=== PATIENT | male | born 1990 | race Caucasian/White ===

== ENCOUNTER 2019-10-25 09:18 | Emergency (ER) | payer OTHER ==
[~2019-10-25] VITALS: Ht 188 cm; Wt 85.7 kg
[~2019-10-25 09:18] MED LIST: Acetaminophen-1 EAC1 PO; Cleocin HCl300 MG PO; Vibramycin100 MG PO
[2019-10-25] MEDS ORDERED: CEPH500 PO (10:06)
[2019-10-25] MEDS ORDERED: MONDOXYNE NL100 MG PO (10:06)
== END 2019-10-25 10:11 | disposition home or self-care (01) ==
LOC: ER 09:18
DX: L02.415 Cutaneous abscess of right lower limb (principal); F17.210 Nicotine dependence, cigarettes, uncomplicated; Z88.1 Allergy status to other antibiotic agents; Z88.2 Allergy status to sulfonamides
CPT/HCPCS: 87070; 87075; 87077; 87147; 87186; 87205; 99283

== ENCOUNTER 2019-10-27 22:14 | Emergency (ER) | payer OTHER ==
[~2019-10-27] VITALS: Ht 188 cm; Wt 81.7 kg
[~2019-10-27 22:14] MED LIST changes: +CEPH500 PO; +MONDOXYNE NL100 MG PO
[2019-10-27 22:48] LABS: BASOPHILS ABSOLUTE AUTO 0.06 K/mm3 (0.00-0.23); BASOPHILS PERCENT AUTO 0 % (0-2); EOSINOPHILS ABSOLUTE AUTO 0.08 K/mm3 (0.00-0.68); EOSINOPHILS PERCENT AUTO 1 % (0-6); Hemoglobin 14.7 g/dL (13.5-17.5); IMMATURE GRAN ABSOLUTE AUTO 0.04 K/mm3 (0.00-0.10); IMMATURE GRAN PERCENT AUTO 0 % (0-1); LYMPHOCYTES ABSOLUTE AUTO 1.42 K/mm3 (0.84-5.20); LYMPHOCYTES PERCENT AUTO 10 % (21-46); MONOCYTES ABSOLUTE AUTO 0.83 K/mm3 (0.16-1.47); MONOCYTES PERCENT AUTO 6 % (4-13); Mean Corpuscular HGB 30.8 pg (26.0-34.0); Mean Corpuscular HGB Conc 33.4 g/dL (31.5-36.5); Mean Corpuscular Volume 92 fL (80-100); Mean Platelet Volume 11.3 fL (9.1-12.4); NEUTROPHILS ABSOLUTE AUTO 11.88 K/mm3 (1.96-9.15); NEUTROPHILS PERCENT AUTO 83 % (41-73); Platelet Count 210 K/mm3 (150-400); RDW Coefficient Variation 12.4 % (11.7-14.2); RDW Standard Deviation 42.2 fL (35.1-46.3); Red Blood Cell Count 4.78 M/mm3 (4.30-5.90); White Blood Cell Count 14.31 K/mm3 (4.00-11.30)
[2019-10-27 23:06] LABS: Alanine Aminotransfer (ALT/SGP 16 U/L (12-78); Albumin, Blood 3.5 g/dL (3.4-5.0); Albumin/Globulin Ratio 0.9 (0.8-1.8); Alk Phos 76 U/L (50-136); Anion Gap 6 mmol/L (6-16); Aspartate Aminotrans (AST/SGOT 10 U/L (12-37); Bilirubin, Total 0.6 mg/dL (0.1-1.0); Blood Urea Nitrogen 16 mg/dL (8-24); CO2, Blood 28 mmol/L (21-32); Chloride, Blood 103 mmol/L (98-108); Creatinine, Blood 0.84 mg/dL (0.60-1.20); Globulin, Blood 4.1 g/dL (2.2-4.0); Glomerular Filtration Rate >60 (60-); Glucose, Blood 116 mg/dL (70-99); Sodium, Blood 137 mmol/L (136-145); Total Protein, Blood 7.6 g/dL (6.4-8.2)
[2019-10-28] MEDS ORDERED: MOTRIN IB200 MG PO (00:55)
[2019-10-28] MEDS ORDERED: Cephalexin500 MG PO (00:55)
== END 2019-10-28 01:28 | disposition home or self-care (01) ==
LOC: ER 22:14
PROVIDERS: Physician Assistant
DX: A41.9 Sepsis, unspecified organism (principal); L03.115 Cellulitis of right lower limb; M70.41 Prepatellar bursitis, right knee; F17.200 Nicotine dependence, unspecified, uncomplicated; Z88.2 Allergy status to sulfonamides; Z88.1 Allergy status to other antibiotic agents
CPT/HCPCS: 36415; 73562-RT; 76882; 80053; 83605; 85025; 87040; 87070; 87075; 87077; 87147; 87186; 87205; 96361; 96365; 96375; 99284-25; J2405; J3370; J7030

== ENCOUNTER 2019-10-28 16:35 | Inpatient (IN) | payer OTHER ==
[~2019-10-28] VITALS: Ht 188 cm; Wt 77.1 kg
[~2019-10-28 16:35] MED LIST changes: +Cephalexin500 MG PO; +MOTRIN IB200 MG PO
[2019-10-28 17:55] LABS: BASOPHILS ABSOLUTE AUTO 0.03 K/mm3 (0.00-0.23); BASOPHILS PERCENT AUTO 0 % (0-2); EOSINOPHILS ABSOLUTE AUTO 0.04 K/mm3 (0.00-0.68); EOSINOPHILS PERCENT AUTO 0 % (0-6); Hematocrit 39.4 % (37.0-53.0); IMMATURE GRAN ABSOLUTE AUTO 0.03 K/mm3 (0.00-0.10); IMMATURE GRAN PERCENT AUTO 0 % (0-1); LYMPHOCYTES ABSOLUTE AUTO 1.43 K/mm3 (0.84-5.20); LYMPHOCYTES PERCENT AUTO 12 % (21-46); MONOCYTES ABSOLUTE AUTO 0.89 K/mm3 (0.16-1.47); MONOCYTES PERCENT AUTO 7 % (4-13); Mean Corpuscular HGB 30.5 pg (26.0-34.0); Mean Corpuscular Volume 93 fL (80-100); Mean Platelet Volume 11.3 fL (9.1-12.4); NEUTROPHILS ABSOLUTE AUTO 9.66 K/mm3 (1.96-9.15); NEUTROPHILS PERCENT AUTO 80 % (41-73); Platelet Count 220 K/mm3 (150-400); RDW Coefficient Variation 12.6 % (11.7-14.2); RDW Standard Deviation 42.8 fL (35.1-46.3); Red Blood Cell Count 4.26 M/mm3 (4.30-5.90); White Blood Cell Count 12.08 K/mm3 (4.00-11.30)
[2019-10-28 18:07] LABS: Alanine Aminotransfer (ALT/SGP 16 U/L (12-78); Albumin, Blood 3.2 g/dL (3.4-5.0); Albumin/Globulin Ratio 0.8 (0.8-1.8); Alk Phos 69 U/L (50-136); Anion Gap 6 mmol/L (6-16); Aspartate Aminotrans (AST/SGOT 15 U/L (12-37); Bilirubin, Total 0.4 mg/dL (0.1-1.0); Blood Urea Nitrogen 15 mg/dL (8-24); Bun/Creatinine Ratio 17.2 (12.0-20.0); CO2, Blood 25 mmol/L (21-32); Calcium, Blood 9.1 mg/dL (8.5-10.1); Chloride, Blood 108 mmol/L (98-108); Creatinine, Blood 0.87 mg/dL (0.60-1.20); Globulin, Blood 4.1 g/dL (2.2-4.0); Glomerular Filtration Rate >60 (60-); Glucose, Blood 117 mg/dL (70-99); Potassium, Blood 4.2 mmol/L (3.5-5.5); Sodium, Blood 139 mmol/L (136-145); Total Protein, Blood 7.3 g/dL (6.4-8.2)
--- NOTE | 2019-10-28 18:37 | NUR ---
PATIENT TO FLOOR FROM ED. HE IS A&O AND IND. COOPERATIVE BUT APPREHENSIVE ABOUT BEING ADMITTED. VSS. MEDICATED FOR PAIN. IVF STARTED AND VANCO INFUSING. PHOTOS TAKEN OF R KNEE. AREA IS SWOLLEN AND DRAINING MODERATE AMOUNT OF SEROSANGUINOUS FLUID. REDNESS UP THE THIGH IS MARKED. PATIENT IS A SMOKER. STATES HIS UNDERSTANDING THAT HE MUST HAVE HIS ANTIBIOTICS COMPLETED PRIOR TO OING OUTSIDE.
[2019-10-29 05:02] LABS: Hematocrit 38.8 % (37.0-53.0); Hemoglobin 12.7 g/dL (13.5-17.5); Mean Corpuscular HGB 30.7 pg (26.0-34.0); Mean Corpuscular HGB Conc 32.7 g/dL (31.5-36.5); Mean Corpuscular Volume 94 fL (80-100); Platelet Count 210 K/mm3 (150-400); RDW Coefficient Variation 12.7 % (11.7-14.2); RDW Standard Deviation 43.6 fL (35.1-46.3); Red Blood Cell Count 4.14 M/mm3 (4.30-5.90); White Blood Cell Count 9.35 K/mm3 (4.00-11.30)
[2019-10-29 05:17] LABS: Anion Gap 4 mmol/L (6-16); Blood Urea Nitrogen 16 mg/dL (8-24); Bun/Creatinine Ratio 19.7 (12.0-20.0); CO2, Blood 29 mmol/L (21-32); Calcium, Blood 8.8 mg/dL (8.5-10.1); Chloride, Blood 106 mmol/L (98-108); Creatinine, Blood 0.81 mg/dL (0.60-1.20); Glomerular Filtration Rate >60 (60-); Glucose, Blood 100 mg/dL (70-99); Potassium, Blood 4.1 mmol/L (3.5-5.5); Sodium, Blood 139 mmol/L (136-145)
--- NOTE | 2019-10-29 06:43 | NUR ---
SHIFT SUMMARY PT IS A 29 Y/O MALE, ADMITTED WITH R KNEE SEPTIC BURSITIS. HE IS A&O X 4, AND INDEPENDENT IN THE ROOM. PT WAS UP ALL NIGHT WITH VISITORS AT BEDSIDE. HE LEFT THE ROOM SEVERAL TIMES TO GO OUTSIDE AND SMOKE. PT IS ON NS @ 100 ML/HR. VITAL SIGNS STABLE. PT WAS MEDICATED ONCE WITH PRN TORADOL. NO COMPLAINTS OF NAUSEA OR SOB. NO OTHER ACUTE CHANGES IN PT CONDITION NOTED. WILL CONTINUE TO MONITOR AND TREAT PER EMAR UNTIL HAND OFF TO DAY SHIFT RN.
--- NOTE | 2019-10-29 08:02 | NUR ---
OUT FOR SMOKE. TAMPER RESISTENT TAPE TO IV SITE.
--- NOTE | 2019-10-29 09:37 | NUR ---
JUST RETURNED FROM OUTSIDE
--- NOTE | 2019-10-29 11:01 | NUR ---
AWARE PATIENT REFUSED; TYLENOL AND TORADOL. STS "DO NOT HELP." HAD TORADOL ONCE.
--- NOTE | 2019-10-29 12:41 | NUR ---
PATIENT WITH EXCELLENT APPETITE. OK TO D'C MAINTENANCE FLUIDS PER
--- NOTE | 2019-10-29 13:56 | NUR ---
NOTIFIED POS. BLD CULTURES, GRQAM POS. COCCI IN CLUSTERS. ALREADY ON VANCO.
--- NOTE | 2019-10-29 14:17 | NUR ---
SLEEPING. NOT AWAKENED TO SEE IF BENADRYL HAS WORKED. APPEARS COMFORTABLE.
[2019-10-29 15:30] LABS: Vancomycin, Trough 17.9 ug/mL (5.0-10.0)
--- NOTE | 2019-10-29 15:51 | NUR ---
HERE TO SEE PATIENT.
--- NOTE | 2019-10-29 16:07 | NUR ---
PATIENT NOT IN ROOM. PER PATIENT NEEDS TO SHOWER AND CLEAN RT LEG. DRESSING OF 4X4 ON WOUND THEN ABD OR EXUDRY. CHANGE TOMORROW MORNING AND SHE WILL SEE HIM TOMORROW AFTERNOON.
--- NOTE | 2019-10-29 17:38 | NUR ---
RETURNED FROM OUTSIDE
--- NOTE | 2019-10-29 17:45 | NUR ---
PATIENTS MOM, SAUMYA CALLS AND WANTS US TO KNOW "HE IS RECOVERING DRUG ADDICT AND IS IN SEVERE PAIN AND NEEDS NONNARCOTIC MED." PATIENT MOM WAS IN ROOM WHEN OFFERED TORADOL AND PATIENT REFUSED. MOM ADVISED PATIENT WOULD BE CONSIDERED AMA IF GONE FROM ROOM MORE THAN 1 HOUR. PATIENT WAS GONE FROM ROOM ABOUT 1 1/2 HOURS WITH FRIEND FINDING PATIENT AND BRINGING HIM BACK TO ROOM.
--- NOTE | 2019-10-29 17:53 | NUR ---
PATIENT IN ROOM EATTING 1 QUART ON ICE CREAM AND WHEN RN ATTEMPTED TO HOOK HIM UP TO IV ANTIBIOTICS STS "I'M GOING TO SHOWER FIRST." WHEN RN SAID YOUR EATTING NOW SO I'M GOING TO COPER HAND ANTIBIOTIC. PATIENT GOES INTO THE SHOWER WITH ANGRY WORDS SAID BY PATIENT. HOSPITALIST AND CONSULT DOCTOR AWARE OF PATIENT NONCOMPLIANCE--GOING OUT TO SMOKE, NOT GETTING ANTIBIOTICS ON TIME.
--- NOTE | 2019-10-29 18:27 | NUR ---
DISCUSS WITH PATIENT ABOUT BEING OFF FLOOR. ADVISED PATIENT IF OFF FLOOR FOR MORE THAN 1 HOUR HE WILL BE CONSIDERED AMA AND ROOM WILL BE CLEANED. PATIENT STS "I WAS ONLY OFF FLOOR FOR 1/2 HOUR." NOTE WAS PLACED IN EMAR WHEN ROOM WAS CHECKED( PATIENT LEFT FEW MINUTES BEFORE THAT WAS SEEN BY DR. FLEMING JUST BEFORE 1600). PATIENT STS HE LEFT AT 4:45PM. ADVISED MEDICAL EQUIPMENT CAN NOT LEAVE CAMPUS. STS HE DID NOT TAKE ANY. WHEN RN POINTS TO WALKER PATIENT STS HE LEFT IT OUTSIDE OF DOOR. WHEN ASKED WHICH DOOR STS RM 304 DOOR. WAS OBSERVED WALKING BACK TO ROOM USING WALKER AND ADMITS TO WALKING OVER TO [facility] WHILE HE WAS GONE. ACCEPTS TORADOL FOR PAIN BUT STS "ITS NOT A PAIN PILL." REVIEW AGAIN HOW TORADOL HELPS TO DECREASE PAIN. PATIENT STS AGAIN "ITS NOT A PAIN PILL." GIVEN BENADRYL EARLIER FOR ITCHING AND NO ITCHING OBSERVED. PATIENT WANTED CIPRO "GREATEST MED" OR PCN FOR HIS INFECTION. ADVISED WHY NOT GETTING THOSE MEDS. AWARE WILL SEE HIM SOMETIME TOMORROW AFTERNOON. ALSO AWARE MAY CHANGE DRESSING PRN. UNLABORED RESPIRATIONS. HAS TALKED ABOUT LEAVING AMA EARLIER IN DAY. CHERI
--- NOTE | 2019-10-30 02:45 | NUR ---
29 YEAR OLD MALE WITH mrsa CONTINUES IN CONTACT ISOLATION. HE IS ON VANCOMYCIN TO TX RT KNEE INFECTION. HAD ORTHOPEDIC CONSULT YESTERDAY WITH NO SURGICAL INTERVENTION CURRENTLY PLANNED. 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 sMOKER 1 PPD LEAVES FLOOR TO SMOKE AND FREQUENTLY ISV LATE RETURNING. nO NARCOTICS RX DUE TO SUBSTANCE ABUSE HX, DECLINES TYLENOL OR TORADOL. LT FOREARM ABSCESS AND SCAR, RT KNEE REDNESS EDEMA WARMTH. NO FEVERS.
--- NOTE | 2019-10-30 04:30 | NUR ---
PT refused AM lab draw, reapproached and he continues to refuse AM lab draw. PT has been outside longer than we allow at least by a few minutes despite reminders that he will be dc AMA if he is off floor greater than 1 hr.
--- NOTE | 2019-10-30 05:16 | NUR ---
PT FINALLY TALKED INTO ALLOWING LAB TO DRAW BLOOD. LAB CALLED WITH SECOND POSITIVE BLOOD CULTURE GRAM POS COCCI IN CLUSTERS. VANCO ANTIBIOTIC COVERAGE APPROPRIATE. PT CONTINUES TO REFUSE TORAdol or tylenol for rt knee pain. pt has 2 others rooming in with him. at times says he wants to go AMA but his Mother encourages him to stay
[2019-10-30 05:31] LABS: Anion Gap 6 mmol/L (6-16); Blood Urea Nitrogen 20 mg/dL (8-24); CO2, Blood 26 mmol/L (21-32); Calcium, Blood 8.8 mg/dL (8.5-10.1); Chloride, Blood 107 mmol/L (98-108); Creatinine, Blood 0.77 mg/dL (0.60-1.20); Glomerular Filtration Rate >60 (60-); Glucose, Blood 98 mg/dL (70-99); Phosphorus, Blood 4.9 mg/dL (2.5-4.9); Potassium, Blood 4.4 mmol/L (3.5-5.5); Sodium, Blood 139 mmol/L (136-145)
--- NOTE | 2019-10-30 19:16 | NUR ---
SHIFT SUMMARY: PT A&O; IRRITABLE; REFUSING ASPECTS OF CARE. HX IV DRUG USE. Tootie JAMISON ABSCESS; DR FLEMING DEBRIDED WOUND; NEW DRESSING APPLIED. IV ABX CONTINUING. REPORT GIVEN TO ONCOMING RN.
--- NOTE | 2019-10-30 19:21 | NUR ---
Responded to code Carlos. Stayed outside room with 2 friends of pt--a man and a woman. Woman tearful. They did not engage, but woman let me hold her until pt responded to interventions.
--- NOTE | 2019-10-30 19:33 | NUR ---
PT FOUND UNRESPONSIVE PT FOUND UNRESPONSIVE BY THIS RN AT 1806. PT FRIENDS YELLED INTO LORENZO THAT PT WASN'T MOVING IN THE BATHROOM. THIS RN SAW PT LEANED OVER ON THE TOILET, UNRESPONSIVE. PT FACE WAS BLUE. NO PULSE FELT. CODE CALLED. NEEDLES WERE ON THE GROUND UNDER PTS FEET. PT MOVED TO BED FOR BED FOR RESUSSITATION. RT STARTED BAGGING. ARCHITECTURAL DRAFTSPERSON GAVE NARCAN. PT EYES THEN STARTED TO OPEN. PT REGAINED CONSCIOUSNESS & STARTED MOVING ARMS AROUND. PT STATED HE WAS UNAWARE OF WHAT HAPPENED. CODE CANCELLED AT THIS TIME. PICTURES TAKEN OF NEEDLES. NAMES FOR FRIENDS IN ROOM COLLECTED.
--- NOTE | 2019-10-30 20:25 | NUR ---
access to PT IV used for narcan administration had just infused vancomycin to treat 2 positive blood cultures MRSA positive
--- NOTE | 2019-10-30 20:28 | NUR ---
trace mitchell was called at 1906 when PT was found slumped on toilet unrespinsive with iv drug used syringes & drug use items found under toilet. Narcan given via IV and PT had full return to consciousness. Witnesses said he had been in bathroom for about 6 minutes and had locked door. They denied knowledge he had been using drugs. [place] [employer] removed the items on bathroom floor. 1 to [address] responded[address] [place] [employer] came and removed syringes and photos to chart. Mother in to talk to PT and security & [employer]. No charges have been filed. DRs said to observe for further unresponsivemness. 1 to 1 direct observation until 2029.
--- NOTE | 2019-10-30 21:06 | NUR ---
A RAPID RESPONSE WAS CALLED AT 1909 AND THEN A CODE WAS CALLED. PT HAS VISITORS COME OUT OF HIS ROOM AND REPORT THAT HE WAS IN THE BATHROOM UNRESPONSIVE. RN GENE MATOS REPORTED THAT SHE THEN WENT INTO THE BATHROOM AND FOUND THE PT SITTING ON THE TOILET LEANED OVER AND HE APPEARS TO BE BLUE. THERE WAS A BACKPACK IN THE BATHROOM ON THE FLOOR WELL 2 INSULIN NEEDLES, SOME GAUZE THAT APPEARED TO HAVE BLOOD ON IT, AND A FEW OTHER BELONGINGS. PT WAS ASSISTED WITH MULT STAFF MEMBER OFF OF THE TOILET AND ONTO THE BED. PT WAS THEN BEING BAGGED WITH BAG MASK BY RT. NARCAN WAS ADMINISTERED AT 1911. A L RADIAL PULSE WAS ALSO FELT AT THIS TIME THAT WAS STRONG. ABOUT 1913 PT STARTED TO REPOND TO NARCAN, OPENED HIS EYES, BEGAN TO BREATH ON HIS OWN. PT ALSO BEGAN TO SPEAK AT THIS TIME, APPEARED TO BE CONFUSED TO WHAT HAPPENED AND WHY ALL OF THE PEOPLE WERE IN HIS ROOM. IT WAS EXPLAINED TO HIM WHAT HAD HAPPENED AND QUESTIONS WERE THEN BEING ASKED OF THE PT TO WHAT HIS ACTIONS WHERE IN THE BATHROOM PRIOR TO BEING FOUND UNRESPONSIVE. AT FIRST HE WAS VAGUE AND STATED HE DID NOT KNOW. THE HOSPITALIST MARIJA CAME INTO THE ROOM TO ASK THE PT QUESTIONS. THE PT ADMITTED TO HER THAT HE HAD INJECTED HIMSELF WITH HEROIN. HE TOLD HER HE WAS NOT READY TO SEEK REHAB FOR HIS ADDICTION. THE DR COUNSELED HIM REGARDING HIS DRUG USE WELL SPEAKING TO HIM ABOUT THE RAPID RESPONSE/CODE THAT HAD JUST HAPPENED. SECURITY WAS ALREADY IN THE ROOM AND THEY BEGAIN TO ASK QUESTIONS REGARDING IF HE HAD ANYTHING ELSE HERE THAT COULD HARM HIM OR ANYONE ELSE. PT STATED JUST WHAT WAS ON THE FLOOR. DR SPENCER CAME TO THE ROOM AND SPOKE TO THE PT REGARDING WHAT JUST HAPPENED AND WHAT THE PLAN WAS REGARDING MONITORING THE PATIENT. AN OFFICER CAME TO THE ROOM, OFFICER RICKI HARMAN, AND REMOVED THE NEEDLES, WHAT THE PT STATED WAS HIS SHARPS CONTAINER, AND A PLASTIC BAG. THE OFFICER ASKED THE PT IF HE HAD ANYTHING ELSE IN HE ROOM OR HIS BAG THAT COULD HARM HIMSELF OR ANYONE ELSE. PT STATED NO. THE OFFICER ASKED IF HE COULD SEARCH THE PT'S BAG. AT FIRST THE PT SAID NO THAT THE OFFICER HAD ALREADY GOT EVERYTHING THAT WAS HARMFUL. THEN A SHORT TIME LATER HE GAVE THE OFFICER PERMISSION TO SEARCH HIS BAG. THE BAG WAS SEARCHED AND NOTHING ELSE WAS FOUND. PT'S MOTHER HAD ALSO CALLED WHEN ALL OF THIS WAS OCCURING AND WE WERE NOT ABLE TO TALK TO HER AT THE TIME, WE LET HER KNOW WE COULD NOT TALK BECAUSE WE WERE CARING FOR HER SON AND ASKED HER TO PLEASE CALL FAMILY OR FRIENDS TO ASK QUESTIONS AT THAT TIME. UPON HEARING THAT HIS MOTHER HAD CALLED THE PT STATED THAT HE DID NOT WANT US TO ANSWER HER QUESTIONS, HE WANTED HER DIRECTED TO HIM AND TO FOR HER TO ASK HIM ANY QUESTIONS. THE PT'S VISITORS WERE OUTSIDE OF HIS ROOM IN THE HALLWAY THE ENTIRE TIME DURING THE RAPID RESPONSE/CODE AND AFTER. THE PT'S MOTHER CAME TO THE HOSPITAL. WE LET THE PT KNOW THAT WE DID NOT CALL HER TO NOTIFY HER OF ANY OF THE THINGS THAT HAD OCCURED. IT IS THOUGHT THAT MAYBE ONE OF HIS VISITORS, OR PERHAPS SOMEONE THEY SPOKE TO, HAD NOTIFIED HER. THE PT'S MOTHER AND BROTHER CAME INTO HIS ROOM AND SPOKE TO HIM ABOUT WHAT HAD HAPPENED. HE TOLD HER HE HAD OD'D AND THAT WE HAD GIVEN HIM NARCAN. SHE ASKED IF WE WOULD BE IN THE ROOM MONITORING HIM. WE LET HER KNOW THAT WE WOULD BE IN THE ROOM TO MONITOR HIM TO SEE HOW HE RESPONDED TO THE MEDICATION GIVEN BUT IF WAS DOING WELL WE WOULD THEN JUST BE CHECKING ON HIM. IF AT ANYTIME WE THOUGHT HE NEEDED TO BE MORE CLOSELY MONITORED THAN THAT WE WOULD TRANSFER HIM TO A MORE CRITCAL CARE UNIT. THIS IS WAS DR MACK ORDERS WERE WELL.
--- NOTE | 2019-10-30 21:30 | NUR ---
2030 AT THIS TIME THE PT IS DOING WELL. VS ARE STABLE, PT DENIES FEELING SLEEPY, LIGHTHEADED, NAUSEA, REPORTS PAIN IN R KNEE IS A 6/10 BUT DOES NOT WANT ANYTHING FOR IT AT THIS TIME. PT REQUESTING TO GO OUTSIDE TO SMOKE. EXPLAINED TO PT HOW CRITICAL THE SITUATION THAT HAD JUST HAPPENED WAS. ENCOURAGED HIM TO RETHING GETTING HELP WITH HIS ADDICTION. THERE IS NO HOLD ON THE PT AT THIS TIME SO WE ARE UNABLE TO REFUSE HIM TO GO OUTSIDE TO SMOKE. PT IS ALREADY AWARE THAT HE IS NOT SUPPOSED TO BE OUT OF HIS ROOM LONGER THAN AN HOUR WITHOUT IT BEING CONSIDERED THAT HE HAS LEFT AMA, AND IS NOTIFIED THAT WE DO NOT WANT PT'S TO LEAVE THE GROUNDS OF THE HOSPITAL WHILE THEY ARE ADMITTED TO THE HOSPITAL. GOT PT TO AGREE TO WAIT TO GO OUTSIDE TO SMOKE UNTIL 2100 AND TO AGREE TO NOT GO FURTHER THAN THE SMOKING AREA IN THE PARKING LOT IN FRONT OF ER. PRIMARY RN UPDATED ON ALL OF THIS INFORMATION. PRIMARY RN TO REASSESS PT AND THEN DR WILL BE CALLED WITH AN UPDATE.
--- NOTE | 2019-10-30 21:39 | NUR ---
DR SPENCER NOTIFIED THAT PT IS STILL DOING WELL, BUT ALSO NOTIFIED OF PT WANTING TO GO OUTSIDE TO SMOKE AND THAT HE IS NOT A HOLD, WE CANNOT REFUSE HIM THIS. DR SPENCER WANTS US TO ADDRESS THE PT GOING OUTSIDE TO SMOKE WITH THE HOSPITALIST AND POSSIBLY GETTING AND ORDER TO STOP THAT. PRIMARY RN INFORMED.
--- NOTE | 2019-10-30 21:52 | NUR ---
PT JUST RETURNED FROM BEING OUTSIDE TO SMOKE, WAS OUTSIDE FOR ABOUT 45 MIN. PT DENIES ANY LIGHTHEADEDNESS, SLEEPINESS, NAUSEA. APPEARS TO BE AAO X 4 AND DOES NOT LOOK SLEEPY. NO OTHER APPARENT SIGNS OF DISTRESS. CALL LIGHT IS IN REACH. PT ENCOURAGED TO CALL IMMEDIATELY IF ANYTHING CHANGED. EARLIER PT WAS ALSO EDUCATED ON HOW IMPORTANT IT IS TO CALL IMMEDIATELY IF HE FELT SLEEPY AT ALL.
--- NOTE | 2019-10-31 01:50 | NUR ---
RESPONDED TO RELAY ASSEMBLER THEN CODE BLUE AT 1906. ASSISTED GETTING PT BACK INTO BED AND BEGAN BAGGING PT. PT BLUE AT THE TIME. NARCAN WAS GIVEN AND PT BEGAN TO WAKE UP AND THEN SAT UP PUSHING BAG AWAY. BAGGING WAS STOPPED. PT AGITATED. RT ON STBY.
--- NOTE | 2019-10-31 06:21 | NUR ---
29 year old MAle has Mother at bedside this AM and has rested quietly after he was found down and unresponsive at 1906. PT recieved narcan to reverse opiate PT had self administered. PT continues to leave floor to smoke several times duering shift, once with Mother. Using Wheelchair to get outside. Compliant with IV vanco administration. VSS. DR DAVALOS had said to have day hospitalist address leaving floor without order and that PT had gone to [facility] twice in last several days when he was off floor. PT stated to NIESHA Chen that is where he obtained narcotics. Order to notify MD to be placed. PT had refused shower yesterday to cleanse rt knee infection. DR. Robert Hartmann had probed rt knee wound and dressing intact.
[2019-10-31 08:30] LABS: BASOPHILS ABSOLUTE AUTO 0.06 K/mm3 (0.00-0.23); BASOPHILS PERCENT AUTO 1 % (0-2); EOSINOPHILS ABSOLUTE AUTO 0.17 K/mm3 (0.00-0.68); EOSINOPHILS PERCENT AUTO 2 % (0-6); Hematocrit 40.2 % (37.0-53.0); Hemoglobin 13.4 g/dL (13.5-17.5); IMMATURE GRAN ABSOLUTE AUTO 0.02 K/mm3 (0.00-0.10); IMMATURE GRAN PERCENT AUTO 0 % (0-1); LYMPHOCYTES ABSOLUTE AUTO 1.66 K/mm3 (0.84-5.20); LYMPHOCYTES PERCENT AUTO 20 % (21-46); MONOCYTES ABSOLUTE AUTO 0.83 K/mm3 (0.16-1.47); MONOCYTES PERCENT AUTO 10 % (4-13); Mean Corpuscular HGB 30.5 pg (26.0-34.0); Mean Corpuscular HGB Conc 33.3 g/dL (31.5-36.5); Mean Corpuscular Volume 92 fL (80-100); Mean Platelet Volume 10.5 fL (9.1-12.4); NEUTROPHILS ABSOLUTE AUTO 5.47 K/mm3 (1.96-9.15); NEUTROPHILS PERCENT AUTO 67 % (41-73); Platelet Count 286 K/mm3 (150-400); RDW Coefficient Variation 12.5 % (11.7-14.2); RDW Standard Deviation 41.8 fL (35.1-46.3); Red Blood Cell Count 4.39 M/mm3 (4.30-5.90); White Blood Cell Count 8.21 K/mm3 (4.00-11.30)
[2019-10-31 08:58] LABS: Alanine Aminotransfer (ALT/SGP 15 U/L (12-78); Albumin, Blood 2.8 g/dL (3.4-5.0); Albumin/Globulin Ratio 0.7 (0.8-1.8); Alk Phos 56 U/L (50-136); Anion Gap 5 mmol/L (6-16); Aspartate Aminotrans (AST/SGOT 13 U/L (12-37); Bilirubin, Total 0.2 mg/dL (0.1-1.0); Blood Urea Nitrogen 10 mg/dL (8-24); CO2, Blood 27 mmol/L (21-32); Calcium, Blood 8.8 mg/dL (8.5-10.1); Chloride, Blood 109 mmol/L (98-108); Creatinine, Blood 0.71 mg/dL (0.60-1.20); Globulin, Blood 3.8 g/dL (2.2-4.0); Glomerular Filtration Rate >60 (60-); Glucose, Blood 101 mg/dL (70-99); Potassium, Blood 4.2 mmol/L (3.5-5.5); Sodium, Blood 141 mmol/L (136-145); Total Protein, Blood 6.6 g/dL (6.4-8.2)
--- NOTE | 2019-10-31 11:36 | NUR ---
SUMMARY/DISCHARGE PT LEFT AMA, SILVERWARE ASSEMBLER AWARE, [facility] CALLED IN TO PT'S PHARMACY, PT'S MOTHER HERE TO GET THE PT
== END 2019-10-31 11:20 | disposition left against medical advice (07) | DRG 872 ==
LOC: ER 16:35 → MEDS 17:02
PROVIDERS: Internal Medicine; ADMIT Internal Medicine
PROC: 0JDN3ZZ Extraction of Right Lower Leg Subcutaneous Tissue and Fascia, Percutaneous Approach (ICD-10-PCS; principal; 2019-10-30)
DX: A41.02 Sepsis due to Methicillin resistant Staphylococcus aureus (principal); L03.115 Cellulitis of right lower limb; F17.210 Nicotine dependence, cigarettes, uncomplicated; Z88.1 Allergy status to other antibiotic agents; Z88.2 Allergy status to sulfonamides
CPT/HCPCS: 36415; 80048; 80053; 80069; 80202; 83605; 85025; 85027; 85651; 87040; 87077; 87186; 96365; 99284-25; J1885; J2310; J3370; J7030; J7040; J7050; Q0163

== ENCOUNTER 2020-04-16 14:32 | Inpatient (IN) | payer OTHER ==
[~2020-04-16] VITALS: Ht 188 cm; Wt 81.7 kg
[2020-04-16 15:16] LABS: BASOPHILS ABSOLUTE AUTO 0.03 K/mm3 (0.00-0.23); BASOPHILS PERCENT AUTO 0 % (0-2); EOSINOPHILS ABSOLUTE AUTO 0.04 K/mm3 (0.00-0.68); EOSINOPHILS PERCENT AUTO 0 % (0-6); Hematocrit 38.4 % (37.0-53.0); Hemoglobin 12.9 g/dL (13.5-17.5); IMMATURE GRAN ABSOLUTE AUTO 0.03 K/mm3 (0.00-0.10); IMMATURE GRAN PERCENT AUTO 0 % (0-1); LYMPHOCYTES PERCENT AUTO 14 % (21-46); MONOCYTES ABSOLUTE AUTO 0.58 K/mm3 (0.16-1.47); MONOCYTES PERCENT AUTO 6 % (4-13); Mean Corpuscular HGB 29.9 pg (26.0-34.0); Mean Corpuscular HGB Conc 33.6 g/dL (31.5-36.5); Mean Corpuscular Volume 89 fL (80-100); Mean Platelet Volume 11.5 fL (9.1-12.4); NEUTROPHILS ABSOLUTE AUTO 7.71 K/mm3 (1.96-9.15); NEUTROPHILS PERCENT AUTO 79 % (41-73); Platelet Count 194 K/mm3 (150-400); RDW Coefficient Variation 12.5 % (11.7-14.2); RDW Standard Deviation 41.1 fL (35.1-46.3); Red Blood Cell Count 4.31 M/mm3 (4.30-5.90); White Blood Cell Count 9.79 K/mm3 (4.00-11.30)
[2020-04-16 15:28] LABS: Alanine Aminotransfer (ALT/SGP 62 U/L (12-78); Albumin, Blood 3.7 g/dL (3.4-5.0); Alk Phos 70 U/L (50-136); Anion Gap 4 mmol/L (6-16); Aspartate Aminotrans (AST/SGOT 40 U/L (12-37); Bilirubin, Total 0.4 mg/dL (0.1-1.0); Blood Urea Nitrogen 13 mg/dL (8-24); Bun/Creatinine Ratio 13.3 (12.0-20.0); CO2, Blood 29 mmol/L (21-32); Calcium, Blood 8.7 mg/dL (8.5-10.1); Chloride, Blood 107 mmol/L (98-108); Creatinine, Blood 0.98 mg/dL (0.60-1.20); Globulin, Blood 3.7 g/dL (2.2-4.0); Glomerular Filtration Rate >60 (60-); Glucose, Blood 112 mg/dL (70-99); Potassium, Blood 3.7 mmol/L (3.5-5.5); Sodium, Blood 140 mmol/L (136-145); Total Protein, Blood 7.4 g/dL (6.4-8.2)
--- NOTE | 2020-04-17 02:05 | NUR ---
PT LEFT ROOM TO SMOKE THOUGH ADVISED IT IS AGAINST POLICY, PT ALSO DICONNECTED IV IN ORDER TO GO OUTSIDE. NURSE NOTIFIDE.
--- NOTE | 2020-04-17 04:06 | NUR ---
SHIFT SUMMARY: PT IS ALERT AND ORIENTED. PT IS IRRITABLE AND INTERMITTENTLY COOPERATIVE WITH CARE. PT INSTRUCTED THAT IT IS POLICY THAT HE CANNOT GO OUTSIDE TO SMOKE, HE IGNORED THIS AND WENT OUTSIDE SEVERAL TIMES. NURSING CAFETERIA WORKER AND Heaven WOODS WERE NOTIFIED, NO ACTION WAS TAKEN. PT DISCONNECTED HIS IV TO GO OUTSIDE ONCE, HE WAS INSTRUCTED NOT TO DO THIS. PT REFUSED LOVENOX AND PRILOSEC. FLUIDS RUNNING ORDERED. PT REPORTS PAIN SEVERAL TIMES, MEDICATING PER EMAR. WILL REPORT TO DAY NURSE.
[2020-04-17 05:58] LABS: BASOPHILS ABSOLUTE AUTO 0.04 K/mm3 (0.00-0.23); BASOPHILS PERCENT AUTO 0 % (0-2); EOSINOPHILS PERCENT AUTO 1 % (0-6); Hematocrit 38.4 % (37.0-53.0); Hemoglobin 12.8 g/dL (13.5-17.5); IMMATURE GRAN ABSOLUTE AUTO 0.02 K/mm3 (0.00-0.10); IMMATURE GRAN PERCENT AUTO 0 % (0-1); LYMPHOCYTES ABSOLUTE AUTO 1.98 K/mm3 (0.84-5.20); LYMPHOCYTES PERCENT AUTO 22 % (21-46); MONOCYTES ABSOLUTE AUTO 0.66 K/mm3 (0.16-1.47); MONOCYTES PERCENT AUTO 7 % (4-13); Mean Corpuscular HGB 29.8 pg (26.0-34.0); Mean Corpuscular HGB Conc 33.3 g/dL (31.5-36.5); Mean Corpuscular Volume 89 fL (80-100); NEUTROPHILS ABSOLUTE AUTO 6.33 K/mm3 (1.96-9.15); NEUTROPHILS PERCENT AUTO 69 % (41-73); Platelet Count 199 K/mm3 (150-400); RDW Coefficient Variation 12.5 % (11.7-14.2); White Blood Cell Count 9.13 K/mm3 (4.00-11.30)
[2020-04-17 06:55] LABS: Anion Gap 4 mmol/L (6-16); Blood Urea Nitrogen 10 mg/dL (8-24); Bun/Creatinine Ratio 11.5 (12.0-20.0); CO2, Blood 28 mmol/L (21-32); Calcium, Blood 8.8 mg/dL (8.5-10.1); Chloride, Blood 109 mmol/L (98-108); Creatinine, Blood 0.87 mg/dL (0.60-1.20); Glomerular Filtration Rate >60 (60-); Glucose, Blood 114 mg/dL (70-99); Potassium, Blood 4.4 mmol/L (3.5-5.5); Sodium, Blood 141 mmol/L (136-145)
--- NOTE | 2020-04-17 07:21 | NUR ---
ASSUMED CARE: PT RESTING QUIETLY IN BED. UNIT COORDINATOR A BEDSIDE. NO ACUTE NEEDS OR CONCERNS AT THIS TIME.
--- NOTE | 2020-04-17 10:33 | NUR ---
PT HAS BEEN INFORMED OF SMOKING POLICY AND DISCOURAGED TO GO OUT TO SMOKE. OFFERED NICOTINE PATCH AND INFORMED THAT SMOKING DECREASES WOUND HEALING. PT STATED HE STILL WISHED TO GO OUT. DISCONNECTED. PAYROLL COORDINATOR AND GOLD PLATER AWARE OF SITUATION.
--- NOTE | 2020-04-17 11:44 | NUR ---
DR DAN CAME TO SEE PT AND IS AWARE THAT PT HAS BEEN REFUSING LOVENOX AND NICOTINE PATCH AND CONTINUES TO GO OUT TO SMOKE. NO FURTHER NEEDS AT THIS TIME.
--- NOTE | 2020-04-17 14:42 | NUR ---
DR CLAROSTRATE CHECKED IN ON PT AND WAS MADE AWARE OF PHOTO AND MEASUREMENT OF FINGER. STATES MAY CONSULT ORTHO BUT ALREADY SPOKE WITH THEM THIS AM
--- NOTE | 2020-04-17 15:37 | NUR ---
AT 1515 LAB WENT INTO PT'S ROOM AND PT STATED HE DID NOT WANT TO BE POKED ANYMORE AND PULLED IV OUT. WAS MET AT ELEVATOR BY MATERIALS SPECIALIST WHO CONTACTED RN. AMA FORM PROVIDED.
== END 2020-04-17 15:08 | disposition left against medical advice (07) | DRG 872 ==
LOC: ER 14:32 → MEDS 20:39
PROVIDERS: Physician Assistant; ADMIT Family Medicine
PROC: 0X9K3ZZ Drainage of Left Hand, Percutaneous Approach (ICD-10-PCS; principal; 2020-04-16)
DX: A41.9 Sepsis, unspecified organism (principal); L02.512 Cutaneous abscess of left hand; L03.012 Cellulitis of left finger; F12.129 Cannabis abuse with intoxication, unspecified; F17.210 Nicotine dependence, cigarettes, uncomplicated; Z86.14 Personal history of Methicillin resistant Staphylococcus aureus infection; Z88.1 Allergy status to other antibiotic agents; Z88.2 Allergy status to sulfonamides
CPT/HCPCS: 10060; 36415; 73120; 80048; 80053; 83605; 85025; 87070; 87075; 87077; 87147; 87186; 87205; 96365-59; 96375-59; 99284-25; J0690; J1170; J3370; J7030